=== PATIENT | male | born 1955 | race Caucasian/White ===

== ENCOUNTER 2020-04-01 11:17 | Outpatient (CLI) | payer MEDICARE, SELFPAY ==
[2020-04-02 07:33] LABS: Alanine Aminotransferase 30 U/L (4-50); Albumin Level 4.4 g/dL (3.5-5.1); Alkaline Phosphatase 114 U/L (38-126); Anion Gap 8 mmol/L (8-16); Aspartate Amino Transferase 36 U/L (17-59); Bilirubin,Total 0.2 mg/dL (0.2-1.3); Blood Urea Nitrogen 24 mg/dL (9-20); Calcium 9.8 mg/dL (8.4-10.2); Carbon Dioxide 30 mmol/L (22-30); Chloride 102 mmol/L (98-107); Cholesterol 178 mg/dL (0-200); Glucose 73 mg/dL (75-110); HDL Direct 41 mg/dL; LDL Cholesterol Direct 96 mg/dL; Potassium 4.2 mmol/L (3.4-5.0); Sodium 140 mmol/L (137-145); Triglycerides 267 mg/dL (<150)
[2020-04-02 09:27] LABS: Estimated Glomerular Filt Rate 57
[2020-04-02 10:00] LABS: Prostate Specific Antigen 0.8 ng/mL (< OR = 4.0)
== END 2020-04-01 11:18 | disposition home or self-care (01) ==
LOC: ANHLAB 11:19
PROVIDERS: PCP Internal Medicine; Visit Provider Nurse Practitioner
DX: E78.5 Hyperlipidemia, unspecified (principal); N40.0 Benign prostatic hyperplasia without lower urinary tract symptoms; E03.9 Hypothyroidism, unspecified
CPT/HCPCS: 36415; 80048; 80061; 80076; 84153; 84443

== ENCOUNTER 2020-09-19 10:15 | Outpatient (CLI) | payer MEDICARE, SELFPAY ==
[2020-09-19 11:36] LABS: Potassium 4.8 mmol/L (3.4-5.0)
[2020-09-19 11:38] LABS: Alanine Aminotransferase 43 U/L (4-50); Albumin Level 4.9 g/dL (3.5-5.1); Alkaline Phosphatase 81 U/L (38-126); Anion Gap 8 mmol/L (8-16); Aspartate Amino Transferase 46 U/L (17-59); Bilirubin,Total 0.5 mg/dL (0.2-1.3); Blood Urea Nitrogen 20 mg/dL (9-20); Calcium 10.2 mg/dL (8.4-10.2); Carbon Dioxide 29 mmol/L (22-30); Chloride 103 mmol/L (98-107); Cholesterol 213 mg/dL (0-200); Estimated Glomerular Filt Rate 51; Glucose 76 mg/dL (75-110); HDL Direct 52 mg/dL; Sodium 140 mmol/L (137-145); Triglycerides 162 mg/dL (<150)
[2020-09-19 11:47] LABS: LDL Cholesterol Direct 119 mg/dL
== END 2020-09-19 10:16 | disposition home or self-care (01) ==
PROVIDERS: PCP Internal Medicine; Visit Provider Nurse Practitioner
DX: E78.00 Pure hypercholesterolemia, unspecified (principal); E03.9 Hypothyroidism, unspecified
CPT/HCPCS: 36415; 80053; 80061; 84443

== ENCOUNTER 2021-02-05 13:11 | Outpatient (CLI) | payer MEDICARE, SELFPAY ==
[2021-02-05 14:13] LABS: Anion Gap 10 mmol/L (8-16); Blood Urea Nitrogen 33 mg/dL (9-20); Calcium 9.9 mg/dL (8.4-10.2); Carbon Dioxide 26 mmol/L (22-30); Chloride 101 mmol/L (98-107); Cholesterol 194 mg/dL (0-200); Estimated Glomerular Filt Rate 41; Glucose 119 mg/dL (65-110); HDL Direct 54 mg/dL; Potassium 4.1 mmol/L (3.4-5.0); Sodium 137 mmol/L (137-145); Triglycerides 138 mg/dL (<150)
[2021-02-05 14:24] LABS: LDL Cholesterol Direct 100 mg/dL
== END 2021-02-05 13:12 | disposition home or self-care (01) ==
PROVIDERS: PCP Internal Medicine; Visit Provider Internal Medicine
DX: E78.5 Hyperlipidemia, unspecified (principal); R79.89 Other specified abnormal findings of blood chemistry; E03.9 Hypothyroidism, unspecified
CPT/HCPCS: 36415; 80048; 80061; 84443

== ENCOUNTER 2021-08-23 12:02 | Outpatient (CLI) | payer MEDICARE, SELFPAY ==
[2021-08-23 12:46] LABS: Alanine Aminotransferase 46 U/L (4-50); Albumin Level 4.7 g/dL (3.5-5.1); Alkaline Phosphatase 98 U/L (38-126); Anion Gap 6 mmol/L (8-16); Aspartate Amino Transferase 46 U/L (17-59); Bilirubin,Total 0.4 mg/dL (0.2-1.3); Blood Urea Nitrogen 20 mg/dL (9-20); Calcium 9.7 mg/dL (8.4-10.2); Carbon Dioxide 30 mmol/L (22-30); Chloride 102 mmol/L (98-107); Cholesterol 189 mg/dL (0-200); Estimated Glomerular Filt Rate 55; Glucose 110 mg/dL (65-110); HDL Direct 48 mg/dL; Potassium 4.6 mmol/L (3.4-5.0); Sodium 138 mmol/L (137-145); Triglycerides 187 mg/dL (<150)
[2021-08-23 12:56] LABS: LDL Cholesterol Direct 100 mg/dL
[2021-08-23 13:16] LABS: Prostate Specific Antigen 0.7 ng/mL (< OR = 4.0)
== END 2021-08-23 12:03 | disposition home or self-care (01) ==
LOC: ANHLAB 12:07
PROVIDERS: PCP Internal Medicine; Visit Provider Nurse Practitioner
DX: E78.5 Hyperlipidemia, unspecified (principal); E03.9 Hypothyroidism, unspecified; Z12.5 Encounter for screening for malignant neoplasm of prostate
CPT/HCPCS: 36415; 80053; 80061; 84153; 84443; G0103

== ENCOUNTER 2022-03-03 12:24 | Outpatient (CLI) | payer MEDICARE, SELFPAY ==
[2022-03-03 13:02] LABS: Alanine Aminotransferase 24 U/L (6-50); Albumin Level 4.6 g/dL (3.5-5.1); Alkaline Phosphatase 110 U/L (38-126); Anion Gap 13 mmol/L (8-16); Aspartate Amino Transferase 32 U/L (17-59); Bilirubin,Total 0.4 mg/dL (0.2-1.3); Blood Urea Nitrogen 24 mg/dL (9-20); Calcium 9.3 mg/dL (8.4-10.2); Carbon Dioxide 27 mmol/L (22-30); Chloride 101 mmol/L (98-107); Cholesterol 179 mg/dL (0-200); Estimated Glomerular Filt Rate > 60; Glucose 93 mg/dL (65-110); HDL Direct 43 mg/dL; Potassium 4.3 mmol/L (3.4-5.0); Sodium 141 mmol/L (137-145); Triglycerides 156 mg/dL (<150)
[2022-03-03 13:13] LABS: LDL Cholesterol Direct 92 mg/dL
== END 2022-03-03 12:25 | disposition home or self-care (01) ==
LOC: ANHLAB 12:33
PROVIDERS: PCP Internal Medicine; Visit Provider Internal Medicine
DX: E78.2 Mixed hyperlipidemia (principal); Z51.81 Encounter for therapeutic drug level monitoring; Z79.899 Other long term (current) drug therapy; E03.9 Hypothyroidism, unspecified
CPT/HCPCS: 36415; 80053; 80061; 84443

== ENCOUNTER 2022-03-17 13:05 | Outpatient (CLI) | payer MEDICARE, SELFPAY ==
--- NOTE | ~2022-03-17 | XR_ITS ---
XR shoulder RT min 2V DATE: 03/17/2022 13:26 INDICATION: Right shoulder pain TECHNIQUE: 4 views COMPARISON: None FINDINGS: No fracture or dislocation, periosteal reaction or bone destruction or abnormal soft tissue calcification of the right shoulder. Normal alignment at the acromion clavicular and glenohumeral mirta ints. IMPRESSION: No significant abnormality Reviewed, dictated and finalized at location B. IMPRESSION: No significant abnormality
--- NOTE | ~2022-03-17 | XR_ITS ---
XR shoulder LT min 2V DATE: 03/17/2022 13:26 INDICATION: Generalized right shoulder pain TECHNIQUE: 4 views COMPARISON: None FINDINGS: There is mild particular spurring of the humeral head consistent with glenohumeral osteoart hritis. There is old fracture deformity of the midshaft of the left clavicle. No recent fracture or dislocati on, periosteal reaction or bone destruction is detected. IMPRESSION: Mild left glenohumeral osteophyte is Old clavicular shaft fracture deformity Reviewed, dictated and finalized at location B.
== END 2022-03-17 13:06 | disposition home or self-care (01) ==
LOC: ANHIMG 13:08
PROVIDERS: PCP Internal Medicine; Visit Provider Internal Medicine
DX: M25.512 Pain in left shoulder (principal); M25.511 Pain in right shoulder; M25.711 Osteophyte, right shoulder; Z87.81 Personal history of (healed) traumatic fracture
CPT/HCPCS: 73030

== ENCOUNTER 2022-07-28 11:08 | Outpatient (CLI) | payer MEDICARE, SELFPAY | END 2022-07-28 11:09 | disposition home or self-care (01) | PROVIDERS: PCP Internal Medicine; Visit Provider Internal Medicine | DX: Z79.899 Other long term (current) drug therapy (principal) | CPT/HCPCS: 36415; 80307 ==

== ENCOUNTER 2022-09-12 14:05 | Outpatient (CLI) | payer MEDICARE, SELFPAY ==
[2022-09-12 15:02] LABS: Alanine Aminotransferase 29 U/L (6-50); Albumin Level 4.6 g/dL (3.5-5.1); Alkaline Phosphatase 120 U/L (38-126); Anion Gap 4 mmol/L (8-16); Aspartate Amino Transferase 30 U/L (17-59); Bilirubin,Total 0.5 mg/dL (0.2-1.3); Blood Urea Nitrogen 25 mg/dL (9-20); Calcium 9.2 mg/dL (8.4-10.2); Carbon Dioxide 30 mmol/L (22-30); Chloride 104 mmol/L (98-107); Cholesterol 191 mg/dL (0-200); Estimated Glomerular Filt Rate > 60; Glucose 89 mg/dL (65-110); HDL Direct 45 mg/dL; Potassium 4.3 mmol/L (3.4-5.0); Sodium 138 mmol/L (137-145); Triglycerides 153 mg/dL (<150)
[2022-09-12 15:16] LABS: LDL Cholesterol Direct 102 mg/dL
[2022-09-12 15:33] LABS: Prostate Specific Antigen 0.7 ng/mL (< OR = 4.0)
== END 2022-09-12 14:06 | disposition home or self-care (01) ==
PROVIDERS: PCP Internal Medicine; Visit Provider Internal Medicine
DX: E78.2 Mixed hyperlipidemia (principal); Z79.899 Other long term (current) drug therapy; Z12.5 Encounter for screening for malignant neoplasm of prostate; E03.9 Hypothyroidism, unspecified
CPT/HCPCS: 36415; 80053; 80061; 84153; 84443; G0103

== ENCOUNTER 2023-03-22 11:35 | Outpatient (CLI) | payer MEDICARE, SELFPAY ==
[2023-03-22 12:43] LABS: Alanine Aminotransferase 36 U/L (6-50); Albumin Level 4.6 g/dL (3.5-5.1); Alkaline Phosphatase 89 U/L (38-126); Anion Gap 7 mmol/L (8-16); Aspartate Amino Transferase 38 U/L (17-59); Bilirubin,Total 0.5 mg/dL (0.2-1.3); Blood Urea Nitrogen 23 mg/dL (9-20); Calcium 9.9 mg/dL (8.4-10.2); Carbon Dioxide 28 mmol/L (22-30); Chloride 105 mmol/L (98-107); Cholesterol 216 mg/dL (0-200); Estimated Glomerular Filt Rate > 60; Glucose 87 mg/dL (65-110); HDL Direct 51 mg/dL; Potassium 3.9 mmol/L (3.4-5.0); Sodium 140 mmol/L (137-145); Triglycerides 228 mg/dL (<150)
[2023-03-22 12:54] LABS: LDL Cholesterol Direct 117 mg/dL
== END 2023-03-22 11:36 | disposition home or self-care (01) ==
LOC: ANHLAB 11:36
PROVIDERS: PCP Family Medicine; Visit Provider Nurse Practitioner
DX: E78.5 Hyperlipidemia, unspecified (principal); E03.9 Hypothyroidism, unspecified; E78.2 Mixed hyperlipidemia
CPT/HCPCS: 36415; 80053; 80061; 84443

== ENCOUNTER 2023-04-17 10:29 | Outpatient (CLI) | payer MEDICARE, SELFPAY ==
--- NOTE | ~2023-04-17 | US_ITS ---
EXAMINATION: US soft tissue UE RT DATE: 04/17/2023 11:34 INDICATION: Soft tissue disorder of the right forearm TECHNIQUE: Multiple grayscale and Doppler ultrasound images of the region of concern at the anterior right forearm were obtained. 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 Reviewed, dictated and finalized at location A.
== END 2023-04-17 10:30 | disposition home or self-care (01) ==
PROVIDERS: PCP Family Medicine; Visit Provider Nurse Practitioner Family
DX: M79.89 Other specified soft tissue disorders (principal)
CPT/HCPCS: 76882

== ENCOUNTER 2023-09-18 11:26 | Outpatient (CLI) | payer MEDICARE, SELFPAY ==
[2023-09-18 11:57] LABS: Basophils Absolute Auto 0.1 K/mm3 (0.0-0.1); Basophils Percent Auto 0.6 % (0.2-1.2); Eosinophils Absolute Auto 0.3 K/mm3 (0-0.3); Eosinophils Percent Auto 2.2 % (0-4.4); Hematocrit 44.3 % (42.0-52.0); Hemoglobin 14.3 g/dL (14.0-18.0); Immature Granulocyte Absolute 0.08 K/mm3 (0.00-0.031); Immature Granulocyte Percent A 0.7 % (0-0.5); Lymphocytes Absolute Auto 3.28 K/mm3 (0.9-3.2); Lymphocytes Percent Auto 28.1 % (18.3-44.2); Mean Corpuscular HGB Conc 32.3 g/dl (32-36); Mean Corpuscular Hemoglobin 29.9 pg (26-34); Mean Corpuscular Volume 92.5 fl (80-100); Mean Platelet Volume 10.3 fl (7.4-10.4); Monocytes Percent Auto 8.8 % (2.6-8.5); Neutrophils Absolute Auto 6.9 K/mm3 (1.3-6.7); Neutrophils Percent Auto 59.6 % (45.5-73.1); Platelet Count Result 331 k/mm3 (150-375); Red Blood Count 4.79 M/mm3 (4.6-6.20); Red Cell Distribution Width 12.7 % (11.5-14.5); White Blood Count 11.7 K/mm3 (4.5-10.0)
[2023-09-18 12:07] LABS: Alanine Aminotransferase 43 U/L (6-50); Albumin Level 4.5 g/dL (3.5-5.1); Alkaline Phosphatase 103 U/L (38-126); Anion Gap 4 mmol/L (8-16); Aspartate Amino Transferase 43 U/L (17-59); Bilirubin,Total 0.5 mg/dL (0.2-1.3); Blood Urea Nitrogen 26 mg/dL (9-20); Calcium 9.7 mg/dL (8.4-10.2); Carbon Dioxide 31 mmol/L (22-30); Chloride 105 mmol/L (98-107); Cholesterol 167 mg/dL (0-200); Estimated Glomerular Filt Rate > 60; Glucose 89 mg/dL (65-110); HDL Direct 46 mg/dL; Potassium 3.7 mmol/L (3.4-5.0); Sodium 140 mmol/L (137-145); Triglycerides 186 mg/dL (<150)
[2023-09-18 12:18] LABS: LDL Cholesterol Direct 104 mg/dL
== END 2023-09-18 11:27 | disposition home or self-care (01) ==
LOC: ANHLAB 11:31
PROVIDERS: PCP Nurse Practitioner Family; Visit Provider Nurse Practitioner Family
DX: E03.9 Hypothyroidism, unspecified (principal); E78.5 Hyperlipidemia, unspecified; I12.9 Hypertensive chronic kidney disease with stage 1 through stage 4 chronic kidney disease, or unspecified chronic kidney disease; N18.2 Chronic kidney disease, stage 2 (mild)
CPT/HCPCS: 36415; 80053; 80061; 84443; 85025

== ENCOUNTER 2023-10-19 12:35 | Outpatient (CLI) | payer MEDICARE, SELFPAY ==
[2023-10-22 02:39] LABS: Amphetamines NEGATIVE ng/mL (<500); Barbiturates NEGATIVE ng/mL (<300); Benzodiazepines NEGATIVE ng/mL (<100); Cocaine Metabolite NEGATIVE ng/mL (<150); Marijuana Metabolite NEGATIVE ng/mL (<20); Methadone Metabolite NEGATIVE ng/mL (<100); Opiates NEGATIVE ng/mL (<100); Oxidant NEGATIVE mcg/mL (<200); pH 6.5 (4.5-9.0)
== END 2023-10-19 12:36 | disposition home or self-care (01) ==
LOC: ANHLAB 12:37
PROVIDERS: PCP Nurse Practitioner Family; Visit Provider Nurse Practitioner Family
DX: F11.90 Opioid use, unspecified, uncomplicated (principal); F17.200 Nicotine dependence, unspecified, uncomplicated; G62.9 Polyneuropathy, unspecified; G89.29 Other chronic pain; M51.36 Other intervertebral disc degeneration, lumbar region; Z79.899 Other long term (current) drug therapy; M54.41 Lumbago with sciatica, right side
CPT/HCPCS: 80307

== ENCOUNTER 2024-04-01 15:45 | Outpatient (CLI) | payer MEDICARE, SELFPAY ==
--- NOTE | ~2024-04-01 | CT_ITS ---
CT Scan of the Chest without Contrast: Clinical Indication: Lung cancer screening, nicotine dependence Technique: Contiguous sections were acquired throughout the chest without intravenous contrast. Dose reduction technique was used on this scan by utilizing automated exposure control and iterative recon struction technique. The dose-length product (DLP) was 120.93 mGy-cm. Findings: There is no evidence of any significant mediastinal, hilar or axillary lymphadenopathy. The mediastin al soft tissues appear normal. There is no evidence of pleural or pericardial effusion. 4 mm left lower lobe pulmonary nodule present (axial image 89). Moderate emphysema. Images through the upper abdomen reveal no abnormalities. Impression: Lung RADS 2: Benign appearance. 12 month follow-up screening CT advised. Moderate emphysema. Reviewed, dictated and finalized at location . Impression: Lung RADS 2: Benign appearance. 12 month follow-up screening CT advised. Moderate emphysema.
[2024-04-01 16:25] LABS: Basophils Absolute Auto 0.1 K/mm3 (0.0-0.1); Basophils Percent Auto 0.6 % (0.2-1.2); Eosinophils Absolute Auto 0.3 K/mm3 (0-0.3); Eosinophils Percent Auto 2.6 % (0-4.4); Hematocrit 44.7 % (42.0-52.0); Hemoglobin 14.3 g/dL (14.0-18.0); Immature Granulocyte Absolute 0.04 K/mm3 (0.00-0.031); Immature Granulocyte Percent A 0.3 % (0-0.5); Lymphocytes Absolute Auto 3.85 K/mm3 (0.9-3.2); Lymphocytes Percent Auto 32.8 % (18.3-44.2); Mean Corpuscular Hemoglobin 29.3 pg (26-34); Mean Corpuscular Volume 91.6 fl (80-100); Mean Platelet Volume 10.4 fl (7.4-10.4); Monocytes Absolute Auto 0.8 K/mm3 (0.1-0.6); Monocytes Percent Auto 6.6 % (2.6-8.5); Neutrophils Absolute Auto 6.7 K/mm3 (1.3-6.7); Neutrophils Percent Auto 57.1 % (45.5-73.1); Platelet Count Result 339 k/mm3 (150-375); Red Blood Count 4.88 M/mm3 (4.6-6.20); White Blood Count 11.8 K/mm3 (4.5-10.0)
[2024-04-01 16:34] LABS: Alanine Aminotransferase 31 U/L (6-50); Albumin Level 4.5 g/dL (3.5-5.1); Alkaline Phosphatase 93 U/L (38-126); Anion Gap 5 mmol/L (4-12); Aspartate Amino Transferase 40 U/L (17-59); Bilirubin,Total 0.3 mg/dL (0.2-1.3); Blood Urea Nitrogen 24 mg/dL (9-20); Calcium 9.8 mg/dL (8.4-10.2); Carbon Dioxide 30 mmol/L (22-30); Chloride 102 mmol/L (98-107); Estimated Glomerular Filt Rate 50; Glucose 102 mg/dL (65-110); Potassium 4.3 mmol/L (3.4-5.0); Sodium 137 mmol/L (137-145)
[2024-04-01 16:53] LABS: Iron 107 ug/dL (49-181)
[2024-04-01 17:07] LABS: Prostate Specific Antigen 0.8 ng/mL (< OR = 4.0)
[2024-04-01 17:09] LABS: Percent Iron Saturation 26 % (20-50)
== END 2024-04-01 15:46 | disposition home or self-care (01) ==
PROVIDERS: PCP Nurse Practitioner Family; Visit Provider Nurse Practitioner Family
DX: Z12.2 Encounter for screening for malignant neoplasm of respiratory organs (principal); F17.210 Nicotine dependence, cigarettes, uncomplicated; Z12.5 Encounter for screening for malignant neoplasm of prostate; J43.9 Emphysema, unspecified; G62.9 Polyneuropathy, unspecified; F11.90 Opioid use, unspecified, uncomplicated; G89.29 Other chronic pain; N40.0 Benign prostatic hyperplasia without lower urinary tract symptoms; M25.561 Pain in right knee; M25.562 Pain in left knee; M51.362 Other intervertebral disc degeneration, lumbar region with discogenic back pain and lower extremity pain
CPT/HCPCS: 36415; 71271; 80053; 82728; 83540; 83550; 84153; 85025; G0103

== ENCOUNTER 2024-05-29 13:23 | Outpatient (CLI) | payer MEDICARE, SELFPAY ==
--- NOTE | ~2024-05-29 | MR_ITS ---
EXAMINATION: MR knee RT wo con DATE: 05/29/2024 14:00 INDICATION: Right knee pain. TECHNIQUE: Magnetic resonance imaging (MRI) of the right knee was performed without intravenous contr ast. Sequences included axial PD-weighted FS FSE, coronal PD-weighted FSE and PD-weighted FS FSE, sag ittal PD-weighted FSE, and sagittal T2-weighted FS FSE. COMPARISON: Right knee radiographs 05/16/2024 FINDINGS: Medial compartment: There is maceration of the body and posterior horn of the medial meniscus. There is partial thickness causes loss of tibial condyle, deep at the central articular surface with mild subchondral edema-lik e signal intensity. There is partial-thickness cartilage loss of femoral condyle, deep at the central articular surface where there is mild subchondral edema-like marrow signal intensity. Osteophytes ar e noted. Lateral compartment: There is maceration of body and posterior horn of lateral meniscus. There is full-thickness cartilage loss of tibial condyle posteriorly with mild subchondral edema-like marrow signal intensity. There i s full-thickness cartilage loss of femoral condyle involving the posterior articular surface with mil d subchondral edema-like marrow signal intensity. There is deep partial-thickness cartilage loss of f emoral condyle involving the central articular surface. Osteophytes are noted. Patellofemoral compartment: There is cartilage surface irregularity of patella and trochlea. Osteophytes are noted. Ligaments and tendons: Anterior cruciate ligament is thickened with increased signal intensity, likely mucoid degeneration. Posterior cruciate ligament is normal. Medial collateral ligament is intact. There are changes of thomas or sprain of fibular collateral ligament characterized by thickening and increased signal intensity p roximally. There is mild patellar tendinopathy. Fluid: There is a small knee joint effusion. There is a small Blackwood's cyst. There is mild superficial infrap atellar bursitis. IMPRESSION: 1. Severe chondrosis of lateral compartment, moderate chondrosis of medial compartment, and mild ezra drosis of patellofemoral compartment. 2. Tears of medial and lateral menisci. 3. Small knee joint effusion. 4. Small Blackwood's cyst. Reviewed, dictated and finalized at location A. [employer] IMPRESSION: 1. Severe chondrosis of lateral compartment, moderate chondrosis of medial comp artment, and mild chondrosis of patellofemoral compartment. 2. Tears of medial and lateral menisci. 3. Small knee joint effusion. 4. Small Blackwood's cyst.
== END 2024-05-29 13:24 | disposition home or self-care (01) ==
LOC: GOSHIMG 13:25
PROVIDERS: PCP Nurse Practitioner Family; Visit Provider Orthopaedic Surgery
DX: M94.261 Chondromalacia, right knee (principal); X58.XXXA Exposure to other specified factors, initial encounter; S83.241A Other tear of medial meniscus, current injury, right knee, initial encounter; M25.461 Effusion, right knee; M71.21 Synovial cyst of popliteal space [Baker], right knee
CPT/HCPCS: 73721

== ENCOUNTER 2024-10-24 13:31 | Outpatient (CLI) | payer MEDICARE, SELFPAY ==
[2024-10-24 14:47] LABS: Basophils Absolute Auto 0.1 K/mm3 (0.0-0.1); Basophils Percent Auto 0.6 % (0.2-1.2); Eosinophils Absolute Auto 0.3 K/mm3 (0-0.3); Eosinophils Percent Auto 2.6 % (0-4.4); Hematocrit 42.5 % (42.0-52.0); Hemoglobin 13.7 g/dL (14.0-18.0); Immature Granulocyte Absolute 0.17 K/mm3 (0.00-0.031); Immature Granulocyte Percent A 1.4 % (0-0.5); Lymphocytes Absolute Auto 3.67 K/mm3 (0.9-3.2); Lymphocytes Percent Auto 29.5 % (18.3-44.2); Mean Corpuscular HGB Conc 32.2 g/dl (32-36); Mean Corpuscular Hemoglobin 29.6 pg (26-34); Mean Corpuscular Volume 91.8 fl (80-100); Mean Platelet Volume 10.3 fl (7.4-10.4); Monocytes Absolute Auto 1.1 K/mm3 (0.1-0.6); Monocytes Percent Auto 8.6 % (2.6-8.5); Neutrophils Absolute Auto 7.1 K/mm3 (1.3-6.7); Neutrophils Percent Auto 57.3 % (45.5-73.1); Platelet Count Result 375 k/mm3 (150-375); Red Blood Count 4.63 M/mm3 (4.6-6.20); Red Cell Distribution Width 13.1 % (11.5-14.5); White Blood Count 12.4 K/mm3 (4.5-10.0)
[2024-10-24 15:05] LABS: Alanine Aminotransferase 39 U/L (6-50); Albumin Level 4.5 g/dL (3.5-5.1); Alkaline Phosphatase 106 U/L (38-126); Anion Gap 8 mmol/L (4-12); Aspartate Amino Transferase 37 U/L (17-59); Bilirubin,Total 0.4 mg/dL (0.2-1.3); Blood Urea Nitrogen 20 mg/dL (9-20); Calcium 9.6 mg/dL (8.4-10.2); Carbon Dioxide 29 mmol/L (22-30); Chloride 103 mmol/L (98-107); Cholesterol 154 mg/dL (0-200); Estimated Glomerular Filt Rate > 60; Glucose 73 mg/dL (65-110); HDL Direct 51 mg/dL; Potassium 4.1 mmol/L (3.4-5.0); Sodium 140 mmol/L (137-145); Triglycerides 129 mg/dL (<150)
[2024-10-24 15:16] LABS: LDL Cholesterol Direct 66 mg/dL
[2024-10-24 18:23] LABS: Free T4 Free Thyroxine 1.18 ng/dL (0.78-2.19)
[2024-10-25 18:34] LABS: Amphetamines NEGATIVE ng/mL (<500); Barbiturates NEGATIVE ng/mL (<300); Benzodiazepines NEGATIVE ng/mL (<100); Cocaine Metabolite NEGATIVE ng/mL (<150); Marijuana Metabolite NEGATIVE ng/mL (<20); Methadone Metabolite NEGATIVE ng/mL (<100); Opiates POSITIVE ng/mL (<100); Oxidant NEGATIVE mcg/mL (<200); PCP NEGATIVE ng/mL (<25)
== END 2024-10-24 13:32 | disposition home or self-care (01) ==
PROVIDERS: PCP Nurse Practitioner Family; Visit Provider Nurse Practitioner Family
DX: D72.829 Elevated white blood cell count, unspecified (principal); F32.A Depression, unspecified; R79.89 Other specified abnormal findings of blood chemistry; F11.90 Opioid use, unspecified, uncomplicated; E78.2 Mixed hyperlipidemia; E66.3 Overweight; M15.9 Polyosteoarthritis, unspecified; E78.00 Pure hypercholesterolemia, unspecified; F17.200 Nicotine dependence, unspecified, uncomplicated; Z79.899 Other long term (current) drug therapy
CPT/HCPCS: 36415; 80053; 80061; 80307; 84439; 84443; 85025

== ENCOUNTER 2025-04-23 14:55 | Outpatient (CLI) | payer MEDICARE, SELFPAY ==
--- OUTSIDE RECORDS SUMMARY | 2005-03-10 03:45 | XMS_ITS | Continuity of Care Document ---
Author Organization [facility] Address [id number] [place] [address] [address] [place] [address] Phone Care Team Providers Care Pot Sander Name Role Phone Baird OD, Jez Unavailable Unavailable Advance Directives Directive Yes / No Effective Date File Name No Information Encounters Encounter Description Practice Location Reason(s) For Visit Diagnoses Date Provider Providers Copied on Encounter [facility], [address], [place], [place], [id number], [place] tel:[phone] [facility] No Information Sep-1 5-200 5 Baird OD Jez. [address] , [address], [place], [address], [place]. tel:[phone] Family History Family Member Type Diagnosis Age At Onset No Information Payers Payer name Insurance type Covered democrat ID Authoriza tion(s) [place] [id number] Social History Type Description Quantity Date Captured Comments Sex Male Smoking Status No Information Chief Complaint And Reason For Visit No Information Reason For Referral Reason For Referral No Information History Of Present Illness Encounter Date Complaint History Of Prese nt Illness No Information Functional Status Date Functional Assessmen t No Information Instructions Date Instruction Additional Infor mation No Information Assessments Type Assessment Date No Information Patient Care Teams Name Effective Dates (start - stop) Status Members No Information
[2025-04-23 16:09] LABS: Hematocrit 43.3 % (42.0-52.0); Hemoglobin 14.0 g/dL (14.0-18.0); Immature Granulocyte Percent A 0.5 % (0-0.5); Lymphocytes Absolute Auto 3.58 K/mm3 (0.9-3.2); Mean Corpuscular HGB Conc 32.3 g/dl (32-36); Mean Corpuscular Hemoglobin 29.7 pg (26-34); Mean Corpuscular Volume 91.7 fl (80-100); Nucleated Red Blood Cells Absolute Auto 0.000 K/mm3 (0.0-0.012); Nucleated Red Blood Cells Perc 0.0 % (0.0-0.2); Platelet Count Result 324 k/mm3 (150-375); Red Blood Count 4.72 M/mm3 (4.6-6.20); White Blood Count 12.1 K/mm3 (4.5-10.0)
[2025-04-23 16:20] LABS: Alanine Aminotransferase 33 U/L (6-50); Albumin Level 4.6 g/dL (3.5-5.1); Alkaline Phosphatase 101 U/L (38-126); Anion Gap 10 mmol/L (4-12); Aspartate Amino Transferase 41 U/L (17-59); Bilirubin,Total 0.6 mg/dL (0.2-1.3); Blood Urea Nitrogen 22 mg/dL (9-20); Calcium 9.7 mg/dL (8.4-10.2); Carbon Dioxide 27 mmol/L (22-30); Chloride 103 mmol/L (98-107); Estimated Glomerular Filt Rate > 60; Glucose 83 mg/dL (65-110); Potassium 4.1 mmol/L (3.4-5.0); Sodium 140 mmol/L (137-145); Total Protein 7.3 g/dL (6.3-8.2)
[2025-04-23 16:49] LABS: Free T4 Free Thyroxine 1.38 ng/dL (0.78-2.19)
--- OUTSIDE RECORDS SUMMARY | 2025-04-23 16:54 | XMS_ITS | Clinical Summary ---
Author Organization [facility] Address [address] [place] [phone] Phone Care Team Providers Care Shoe Sprayer Name Role Phone Tray Batista DO Primary Care Provider [phone] Allergies Active Allergy Reactions Criticality Noted Date Comments Iodinated Contrast Media Itching Low 12/26/2013 Medications FLUoxetine (PROZAC) 20 mg capsule Take 20 mg by mouth daily. Active levothyroxine 50 mcg tablet Take 50 mcg by mouth daily. 07/11/2019 Active multivit-mins no.63/iron/foli c (M-VIT ORAL) Take 1 Tablet by mouth daily at bedtime. Active Cetirizine (ZyrTEC) 10 mg Capsule Take 10 mg by mouth 1 time daily as needed (allergies). Active HYDROcodone-eva taminophen (NORCO) 10-325 mg TabletIndicatio ns:Encounter for blood typing Take 1 Tablet by mouth every 4 hours as needed for moderate pain. Max Daily Amount: 6 Tablets 30 Tablet 08/13/2019 Active famotidine (PEPCID) 40 mg tablet Take 1 Tablet by mouth 2 times daily. 08/26/2024 Active rosuvastatin (CRESTOR) 20 mg tablet 09/16/2024 Active meloxicam (MOBIC) 15 mg tablet Take 1 Tablet by mouth daily. 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 02/17/2020 S/P lumbar discectomy 09/02/2019 Encounters Date Type Department Care Team Description 04/16/2025 External Device Data STL ABSTRACTION Provider, Abstract from Last 3 Months Family History Medical History Relation Name Comments No Known Problems Brother Cancer Father lymph node, sto mach Breast Cancer Mother No Known Problems Sister Relation Name Status Comments Brother Alive Father Mother Sister Alive Social History Tobacco Use Types Packs/Day Years Used Date Smoking Tobacco: Former Cigarettes 1 45 1 [id number] Smokeless Tobacco: Never Alcohol Use Standard Drinks/Week Comments Yes 0 (1 standard drink = 0.6 oz pur e alcohol) moderate Sex and Gender Information Value Date Recorded Sex Assigned at Not on file Legal Sex Male 8:29 PM CDT Gender Identity Not on file Sexual Orientation Not on file Occupation Industry Job Start Date Job End Date Not on file Not on file Not on file Not on file Last Filed Vital Signs Vital Sign Reading Time Taken Comments Blood Pressure 174/88 09/21/2024 1:00 PM CDT Pulse 78 09/21/2024 1:00 PM CDT Temperature 36.7 C (98.1 F) 09/21/2024 1:00 PM CDT Respiratory Rate 12 09/21/2024 1:00 PM CDT Oxygen Saturation 98% 09/21/2024 1:00 PM CDT Inhaled Oxygen Concentration - - Weight 81.6 kg (180 lb) 09/21/2024 1:00 PM CDT Height 175.3 cm (5' 9) 09/21/2024 1:00 PM CDT Body Mass Index 26.58 09/21/2024 1:00 PM CDT Plan of Treatment Health Maintenance Due Date Last Done Comments Pre-Diabetes and Diabetes Screening 1955 DTAP/TDAP/TD VACCINES (1 - Tdap) 11/18/1974 COLORECTAL SCREENING 11/18/2000 Colorectal Cancer Screening 11/18/2000 FIT-DNA Q 3 years 11/18/2000 FIT/FOBT Q 1 year 11/18/2000 Flex Sig/CT Colonography Q 5 years 11/18/2000 Lung Cancer Screening 11/18/2005 PNEUMOCOCCAL VACCINE 50+ YEARS (1 of 1 - PCV) 11/19/19 06 ZOSTER VACCINE (1 of 2) 11/18/2005 Abdominal Aortic Aneurysm (AAA) Screening 11/18/2020 INFLUENZA VACCINE (#1) 2025 COVID-19 Vaccine ( - season) 02/24/202508/2020 RSV VACCINE (60+ or ) (1 - 1-dose 75+ series) 11/18/2030 Medical Devices Implanted Type Area Maintenance Electrician Device Identifier Shelf Expiration Date Model / Serial / Lot Sealant Duraseal 5ml - [id number] Implanted:Qty: 1 on 08/13/2019 by Jeb Awan MD at [facility] Biological Left: Spine Lumbar [employer] 09/23/2020 / / [id number] Hemostatic Surgiflo 8ml W/Thrombin 2994 - [id number] Implanted:Qty: 1 on 08/13/2019 by Jeb Awan MD at [facility] Hemostatic Left: Spine Lumbar [employer] 05/25/2020 [id number] / / [id number] Insurance MEDICARE PART A AND B RX [facility] Medicare Part D AETNA [facility] [place] Address: [facility] [id number] [place] [phone] Advance Directives For more information, please contact: [phone] * Full Code (Latest Code Status on File) Date Activated Date Inactivated Comments 08/13/2019 3:27 PM 08/13/2019 10:08 PM Care Teams Shoe Sprayer Relationship Specialty Start Date End Date Tray Batista DO [address] [facility] [address] [place] [address] PCP - General Internal Medicine 07/24/19
[2025-04-23 16:57] LABS: Prostate Specific Antigen 0.7 ng/mL (< OR = 4.0); Thyroid Stimulating Hormone 2.900 uIU/mL (0.465-4.680)
[2025-04-23 23:01] LABS: Free T3 3.69 pg/mL (2.45-5.93)
== END 2025-04-23 14:56 | disposition home or self-care (01) ==
LOC: ANHLAB 14:56
PROVIDERS: PCP Nurse Practitioner Family; Visit Provider Nurse Practitioner Family
DX: F32.A Depression, unspecified (principal); F11.90 Opioid use, unspecified, uncomplicated; E78.2 Mixed hyperlipidemia; E03.9 Hypothyroidism, unspecified; M54.41 Lumbago with sciatica, right side; G89.29 Other chronic pain; G62.9 Polyneuropathy, unspecified; J43.9 Emphysema, unspecified; Z12.5 Encounter for screening for malignant neoplasm of prostate; M51.369 Other intervertebral disc degeneration, lumbar region without mention of lumbar back pain or lower extremity pain
CPT/HCPCS: 36415; 80053; 84153; 84439; 84443; 84481; 85025; G0103